=== PATIENT | male | born 1995 | race Caucasian/White ===

== ENCOUNTER 2020-03-23 12:22 | Emergency (ER) | payer BC, SELFPAY ==
[2020-03-23 12:34] VITALS: BP 146/87; PULSE 88; RESP 20; TEMP 37.6; O2SAT 99
--- NOTE | 2020-03-23 12:47 | ED.GENADULT ---
HPI - General Adult General Chief complaint: Upper Respiratory Infection Stated complaint: sore throat Time Seen by Provider: 03/23/20 12:48 Source: patient Mode of arrival: ambulatory Limitations: no limitations History of Present Illness HPI narrative: 24-year-old male patient presents to [facility] with complaints of sore throat x3 days. Patient denies any fevers but states he has had some body aches and chills. Patient states it does not hurt when trying to swallow even his saliva. Denies any nausea, vomiting or diarrhea. Related Data Allergies Allergy/AdvReac Type Severity Reaction Status Date / Time No Known Allergies Allergy Verified 03/23/20 12:56 Review of Systems Review of Systems: Narrative: CONSTITUTIONAL: Denies fever, chills, or sweats. EYES: Denies visual changes, redness, or discharge. ENT: Denies rhinorrhea, congestion, positive sore throat, denies otalgia. CARDIOVASCULAR: Denies chest pain, palpitations, or edema. RESPIRATORY: Denies cough or dyspnea. GASTROINTESTINAL: Denies abdominal pain, nausea, vomiting, or diarrhea. GENITOURINARY: Denies dysuria or hematuria. SKIN: Denies rash or itching. MUSCULOSKELETAL: Denies back pain, joint pain, or myalgia. NEUROLOGIC: Denies headache, numbness, or weakness. PSYCHIATRIC: Denies anxiety or depression. [facility] Social History Social History Gender identity (if verbalized by the patient): Male Comments At the time of my signature I agree with nursing past medical history, surgical, social, and family history. There is no relevant family history pertinent to the presenting complaint. Exam Narrative: Exam Narrative: GENERAL: Well-appearing, well-nourished, and in no acute distress. HEAD: Normocephalic, atraumatic. EYES: PERRLA and EOMI. ENT: Nares clear, no rhinorrhea or epistaxis. Mucous membranes moist. Posterior pharynx with 3+ kissing tonsils with white and yellow exudates noted on bilateral sides. Bilateral TMs are clear no erythema or foreign bodies in the canal. Patient is controlling secretions well NECK: Supple. No lymphadenopathy CHEST: Clear to auscultation. No respiratory distress. Patient is able to talk in clear complete sentences. HEART: Regular rate and rhythm. No murmur heard. Normal peripheral pulses. ABDOMEN: Soft, nontender, nondistended, normal active bowel sounds. EXTREMITIES: Normal range of motion. No edema. SKIN: Warm, dry, no rash. NEURO: No focal deficits. Alert and oriented x3. Course Vital Signs Vital signs: Vital Signs Temperature 37.6 C 03/23/20 12:34 Pulse Rate 88 03/23/20 12:34 Respiratory Rate 20 03/23/20 12:34 Blood Pressure 146/87 H 03/23/20 12:34 Pulse Oximetry 99 03/23/20 12:34 Temperature 37.6 C 03/23/20 12:34 Pulse Rate 88 03/23/20 12:34 Respiratory Rate 20 03/23/20 12:34 Blood Pressure 146/87 H 03/23/20 12:34 Pulse Oximetry 99 03/23/20 12:34 Vital signs reviewed The patient has been informed that they may have pre-hypertension or Hypertension based on a BP reading in the department. I recommend that the patient call the primary care provider listed on their discharge instructions or a physician of their choice this week to arrange follow up for further evaluation of possible pre-hypertension or Hypertension Medical Decision Making Differential Diagnosis Differential Diagnosis: Differential diagnosis: Viral pharyngitis, pharyngitis, group A strep, infectious mononucleosis, gonococcal pharyngitis, exudative pharyngitis, oral candidiasis. Chronic allergies, postnasal drip, GERD, abscess formation, but glottitis, retropharyngeal abscess formation, or airway obstruction. Discussed with patient that he is positive today for strep. We will go ahead and discharge him home with an antibiotic and some viscous lidocaine that he can gargle and spit to help with the pain. We will also give him some oral liquid dexamethasone to help
== END 2020-03-23 13:33 | disposition home or self-care (01) ==
PROVIDERS: Emergency Provider Nurse Practitioner Family
DX: J02.0 Streptococcal pharyngitis (principal)
CPT/HCPCS: 87880; 99213; G0463; J8540

== ENCOUNTER 2020-09-13 09:20 | Emergency (ER) | payer BC, SELFPAY ==
--- NOTE | ~2020-09-13 | XR_ITS ---
EXAMINATION: XR thoracic spine 3V DATE: 09/13/2020 10:08 INDICATION: Back pain post injury 4 days prior. TECHNIQUE: One AP, lateral and lateral swimmer's views of the thoracic spine were obtained. COMPARISON: None. FINDINGS: 9 degrees levocurvature between T1 and T4. Chronic appearing mild anterior wedging at T9. Remaining v ertebral body heights are normal. Mild disc height loss at T5-T6 and T6-T7. Visualized portions of th e lungs are clear. No pleural effusion or pneumothorax. Cardiomediastinal silhouette is normal. IMPRESSION: 1. Chronic appearing mild anterior wedging at T9. No acute osseous abnormality. 2. Mild upper thoracic levocurvature and minimal midthoracic spondylosis. Reviewed, dictated and finalized at location A.
--- NOTE | ~2020-09-13 | XR_ITS ---
EXAMINATION: XR shoulder RT min 2V DATE: 09/13/2020 10:09 INDICATION: Right shoulder pain post injury 2 injury TECHNIQUE: AP internally and externally rotated, AP oblique externally rotated and transscapular Y vi ews of the right shoulder were obtained. COMPARISON: None FINDINGS: Normal alignment. No fracture. Glenohumeral joint is normal. Acromioclavicular joint is normal. Soft tissues are unremarkable. Visualized portions of the lungs are clear. IMPRESSION: Negative right shoulder radiographs. Reviewed, dictated and finalized at location A.
[2020-09-13 09:24] VITALS: BP 149/82; PULSE 74; RESP 16; TEMP 36.8; O2SAT 100
--- NOTE | 2020-09-13 09:57 | ED.BACK ---
HPI - Back Pain/Injury General Chief Complaint: Back Pain/Injury Stated Complaint: back tightness Source: patient Mode of arrival: ambulatory Limitations: no limitations History of Present Illness HPI Narrative: Patient is a 25 year old male who presents complaining of upper back and right shoulder pain. He reports pain started while in a [employer] competition. Patient reports being twisted very hard and feeling pop . He reports pain increases with range of motion. He reports initial shortness of breath which he attributes to pain and has since resolved. He denies chest pain or shortness of breath at this time. Patient reports using ice, heat, massage and over the counter medications with limited relief. He also reports using marijuana for comfort. He denies significant medical history. MD elicited complaint: back pain Related Data Allergies Allergy/AdvReac Type Severity Reaction Status Date / Time No Known Allergies Allergy Verified 09/13/20 09:28 Review of Systems Review of Systems: Narrative: CONSTITUTIONAL: Denies fever, chills, or sweats. EYES: Denies visual changes, redness, or discharge. ENT: Denies rhinorrhea, congestion, sore throat, or otalgia. CARDIOVASCULAR: Denies chest pain, palpitations, or edema. RESPIRATORY: Denies cough or dyspnea. GASTROINTESTINAL: Denies abdominal pain, nausea, vomiting, or diarrhea. GENITOURINARY: Denies dysuria or hematuria. SKIN: Denies rash or itching. MUSCULOSKELETAL: Reports upper back and right shoulder pain NEUROLOGIC: Denies headache, numbness, dizziness, or weakness. PSYCHIATRIC: Denies anxiety or depression. [facility] Past Medical History Medical History No significant past medical history Surgical History Surgical History No significant past surgical history Social History Social History (Updated 09/13/20 @ 10:02 by JULIETH Best) Smoking status: Never smoker Alcohol intake: current Alcohol use details: occasional Substance use: current Substance use type: marijuana Living arrangements: with family Occupation/Education: occupation Gender identity (if verbalized by the patient): Male Comments At the time of signature, I have reviewed and agree with nursing past medical, surgical, social, and family history unless otherwise noted. Please see nursing chart for further information. There is no relevant family history pertinent to the presenting complaint. Exam Narrative: Exam Narrative: GENERAL: Well-appearing, well-nourished, and in no acute distress. HEAD: Normocephalic, atraumatic. EYES: EOMI. No redness or drainage. Conjunctiva are normal. ENT: Mucous membranes pink and moist. CHEST: No respiratory distress. Clear to auscultation. HEART: Regular rate and rhythm. No murmur appreciated. Normal peripheral pulses. MUSCULOSKELETAL: Tenderness with palpitation at scapula, no obvious deformity EXTREMITIES: Normal range of motion. No edema. SKIN: Warm, dry, no rash. NEURO: No focal deficits. Alert and oriented x3. Gait steady. PSYCH: Normal affect. No signs of depression or anxiety. Course Vital Signs Vital signs: Vital Signs Temperature 36.8 C 09/13/20 09:24 Pulse Rate 74 09/13/20 09:24 Respiratory Rate 16 09/13/20 09:24 Blood Pressure 149/82 H 09/13/20 09:24 Pulse Oximetry 100 09/13/20 09:24 Temperature 36.8 C 09/13/20 09:24 Pulse Rate 74 09/13/20 09:24 Respiratory Rate 16 09/13/20 09:24 Blood Pressure 149/82 H 09/13/20 09:24 Pulse Oximetry 100 09/13/20 09:24 Reviewed. Patient has been instructed to follow-up with his PCP regarding his blood pressure. MDM - Back Pain/Injury MDM Narrative Medical decision making narrative: Patient's x-ray is negative. Patient's pain is most likely musculoskeletal. Discussed use of Tylenol and ibuprofen for pain, muscle relaxants, ice and heat, and limiti
== END 2020-09-13 10:30 | disposition home or self-care (01) ==
PROVIDERS: Emergency Provider Nurse Practitioner
DX: S46.911A Strain of unspecified muscle, fascia and tendon at shoulder and upper arm level, right arm, initial encounter (principal); X50.9XXA Other and unspecified overexertion or strenuous movements or postures, initial encounter; Y93.75 Activity, martial arts
CPT/HCPCS: 72072; 73030; 99214; G0463